=== PATIENT | female | born 1990 | race Caucasian/White ===

== ENCOUNTER → 2016-05-09 | Outpatient (CLI) | payer OTHER | END | disposition disaster alternative care site (69) | LOC: GLAB 08:00 | DX: Z31.41 Encounter for fertility testing (principal) ==

== ENCOUNTER → 2016-07-02 | Outpatient (CLI) | payer OTHER | END | disposition disaster alternative care site (69) | LOC: GLAB 08:03 | DX: Z01.83 Encounter for blood typing (principal) ==